=== PATIENT | male | born 1940 | race Two or more races ===

== ENCOUNTER 2024-03-17 17:55 | Inpatient (IN) | payer OTHER ==
[2024-03-17 19:31] LABS: BASO % 0.8 % (0-2.0); EOS % 0.2 % (0-4.5); HEMATOCRIT 25.8 % (35.4-49); HEMOGLOBIN 8.2 GM/dL (11.7-16.9); LYMPH % 13.3 % (8-40); MCH 26.9 pg (25.7-33.7); MCHC 31.6 g/dl (32.0-35.9); MEAN CELL VOLUME 85.1 fl (80-96); MEAN PLT VOLUME 8.1 fl (7.5-11.1); MONO % 5.7 % (3.8-10.2); PLATELET COUNT 354 10^3/uL (134-434); RBC 3.03 M/mm3 (4.00-5.60); WHITE BLOOD COUNT 15.3 K/mm3 (4.0-10.0)
[2024-03-17 19:46] LABS: INR 1.19 (0.83-1.09); PROTHROMBIN TIME (PATIENT) 13.6 SEC (9.7-13.0)
[2024-03-17 19:49] LABS: ACTIVATED PTT 35.9 SECONDS (25.2-36.5)
[2024-03-17 19:52] LABS: POTASSIUM 4.5 mmol/L (3.5-5.1)
[2024-03-17 19:54] LABS: ALBUMIN 2.1 g/dl (3.4-5.0); BLOOD UREA NITROGEN 25.7 mg/dL (7-18); CALCIUM 9.2 mg/dL (8.5-10.1); MAGNESIUM 2.2 mg/dL (1.8-2.4)
[2024-03-17 19:57] LABS: CREATININE 1.2 mg/dL (0.55-1.3)
[2024-03-17 19:59] LABS: BILIRUBIN,TOTAL 0.6 mg/dL (0.2-1); TOT PROT 7.2 g/dl (6.4-8.2)
[2024-03-17 20:01] LABS: LACTIC ACID 3.7 mmol/L (0.4-2.0)
[2024-03-17] MEDS ORDERED: ACETAMINOPHEN INJECTION 100 ML ONE (20:19)
[2024-03-17] MEDS: ACETAMINOPHEN 1000 MG/100 ML BAG IVPB ONE (20:33)
[2024-03-17] MEDS: LACTATED RINGERS SOLUTION 1000 ML INFUS.BAG IV ONE ×2 (20:34→22:45)
[2024-03-17] MEDS ORDERED: NAPH,MB-DB/K PH,MBDB POWDER PACKET ONE (20:44)
[2024-03-17 20:53] LABS: ANISOCYTOSIS 2+; MACROCYTOSIS 0; OVALOCYTE 1+; TARGET CELLS 1+
[2024-03-17] MEDS: NAPH,MB-DB/K PH,MBDB POWDER PACKET PO ONE (21:10)
[2024-03-17 21:53] LABS: EPI CELLS 1 /uL (0-25.1); HYALINE CASTS 0 /uL (0-3.1); URINE APPEARANCE CLEAR; URINE BACTERIA 1 /uL (0-1359); URINE BILIRUBIN NEGATIVE (NEGATIVE); URINE COLOR YELLOW; URINE GLUCOSE (UA) NEGATIVE (NEGATIVE); URINE KETONE NEGATIVE (NEGATIVE); URINE LEUK ESTERASE NEGATIVE (NEGATIVE); URINE NITRITE NEGATIVE (NEGATIVE); URINE PROTEIN 1+ (NEGATIVE); URINE RBC 14 /uL (0-23.9); URINE WBC 2 /uL (0-25.8)
[2024-03-17] MEDS ORDERED: PIPERACILLIN/TAZOB 4.5 GM 4.5 GM/100 ML BAG IVPB ONE (22:05)
[2024-03-17] MEDS: PIPERACILLIN/TAZOB 4.5 GM 4.5 GM in DEXTROSE 5%-WATER 100 ML IVPB ONE (22:35)
[2024-03-17 22:37] LABS: LACTIC ACID 2.8 mmol/L (0.4-2.0)
[2024-03-17] MEDS: VANCOMYCIN PREMIX 1.5 GM 1,500 MG/300 ML BAG IVPB ONE (23:01)
[2024-03-17] MEDS: VANCOMYCIN HCL 1,500 MG in DEXTROSE 5%-WATER - 500 ML IVPB ONE (23:10)
[2024-03-18] MEDS: PIPERACILLIN/TAZOB 2.25 GM 2.25 GM in DEXTROSE 5%-WATER - 50 ML IVPB SCH (05:38)
[2024-03-18] MEDS: PREGABALIN 25 MG CAPSULE PO SCH (09:48)
[2024-03-18] MEDS: ENOXAPARIN NA (PORCINE) 40 MG/0.4 ML DISP.SYRIN SQ SCH (09:48)
[2024-03-18] MEDS: amLODIPine BESYLATE 5 MG TABLET (FP) PO SCH (09:50)
[2024-03-18] MEDS ORDERED: VANCOMYCIN 1,000 MG in DEXTROSE 5%-WATER - 250 ML IVPB SCH (10:00)
[2024-03-18] MEDS ORDERED: INSULIN ASPART SLIDING SCALE (NOVOLOG) 1 VIAL SQ ONE (11:39)
[2024-03-18] MEDS: PIPERACILLIN/TAZOB 4.5 GM 4.5 GM in DEXTROSE 5%-WATER 100 ML IVPB SCH (12:53)
[2024-03-18] MEDS: IRON SUCROSE INJECTION 100 MG in SODIUM CHLORIDE 95 ML IVPB ONE (18:41)
[2024-03-18] MEDS: MIRTAZAPINE 15 MG TABLET (FP) PO SCH (21:40)
[2024-03-18] MEDS: NAPH,MB-DB/K PH,MBDB POWDER PACKET PO SCH (21:42)
[2024-03-19] MEDS ORDERED: PIPERACILLIN/TAZOB 2.25 GM 2.25 GM in DEXTROSE 5%-WATER - 50 ML IVPB SCH (03:00)
[2024-03-19] MEDS: MULTIVITAMINS (DAILY MVI) TABLET (FP) PO SCH (09:50)
[2024-03-19] MEDS: FERROUS SO4 325 MG TABLET (FP) PO SCH (09:50)
[2024-03-19 11:11] LABS: BASO % 0.1 % (0-2.0); EOS % 0.4 % (0-4.5); HEMATOCRIT 26.3 % (35.4-49); HEMOGLOBIN 8.3 GM/dL (11.7-16.9); LYMPH % 6.5 % (8-40); MCH 26.5 pg (25.7-33.7); MCHC 31.7 g/dl (32.0-35.9); MEAN CELL VOLUME 83.6 fl (80-96); MEAN PLT VOLUME 7.7 fl (7.5-11.1); MONO % 5.4 % (3.8-10.2); NEUT % 87.6 % (42.8-82.8); PLATELET COUNT 351 10^3/uL (134-434); RBC 3.15 M/mm3 (4.00-5.60); WHITE BLOOD COUNT 12.7 K/mm3 (4.0-10.0)
[2024-03-19 11:28] LABS: POTASSIUM 3.9 mmol/L (3.5-5.1)
[2024-03-19 11:30] LABS: CALCIUM 8.1 mg/dL (8.5-10.1)
[2024-03-19 11:31] LABS: ALBUMIN 1.8 g/dl (3.4-5.0); BLOOD UREA NITROGEN 17.1 mg/dL (7-18); MAGNESIUM 2.1 mg/dL (1.8-2.4)
[2024-03-19 11:36] LABS: BILIRUBIN,TOTAL 1.1 mg/dL (0.2-1); TOT PROT 6.4 g/dl (6.4-8.2)
[2024-03-21 09:48] LABS: BASO % 0.4 % (0-2.0); EOS % 1.4 % (0-4.5); HEMATOCRIT 28.5 % (35.4-49); HEMOGLOBIN 9.1 GM/dL (11.7-16.9); LYMPH % 17.4 % (8-40); MCH 26.9 pg (25.7-33.7); MCHC 32.1 g/dl (32.0-35.9); MEAN CELL VOLUME 83.8 fl (80-96); MEAN PLT VOLUME 7.8 fl (7.5-11.1); MONO % 4.8 % (3.8-10.2); PLATELET COUNT 445 10^3/uL (134-434); RDW 21.1 % (11.9-15.9)
[2024-03-21 10:17] LABS: BLOOD UREA NITROGEN 19.9 mg/dL (7-18); CALCIUM 8.4 mg/dL (8.5-10.1); MAGNESIUM 2.3 mg/dL (1.8-2.4)
[2024-03-21 10:20] LABS: CREATININE 1.1 mg/dL (0.55-1.3)
[2024-03-21 10:22] LABS: BILIRUBIN,TOTAL 0.9 mg/dL (0.2-1); TOT PROT 7.2 g/dl (6.4-8.2)
[2024-03-21 10:35] LABS: ANISOCYTOSIS 2+; MACROCYTOSIS 2+; OVALOCYTE 1+; TARGET CELLS 1+; TEAR DROP CELLS 1+
[2024-03-21] MEDS: PIPERACILLIN/TAZOB 4.5 GM 4.5 GM/100 ML BAG IVPB SCH (17:45)
[2024-03-21] MEDS: MIRTAZAPINE 15 MG TABLET (FP) PO SCH (21:20)
[2024-03-22 09:32] LABS: BASO % 0.2 % (0-2.0); EOS % 1.1 % (0-4.5); HEMATOCRIT 26.3 % (35.4-49); HEMOGLOBIN 8.3 GM/dL (11.7-16.9); LYMPH % 6.2 % (8-40); MCH 26.9 pg (25.7-33.7); MCHC 31.4 g/dl (32.0-35.9); MEAN CELL VOLUME 85.6 fl (80-96); MEAN PLT VOLUME 7.7 fl (7.5-11.1); MONO % 6.3 % (3.8-10.2); NEUT % 86.2 % (42.8-82.8); PLATELET COUNT 318 10^3/uL (134-434); RBC 3.08 M/mm3 (4.00-5.60); RDW 20.8 % (11.9-15.9); WHITE BLOOD COUNT 12.8 K/mm3 (4.0-10.0)
[2024-03-22 09:44] LABS: POTASSIUM 4.1 mmol/L (3.5-5.1)
[2024-03-22 09:50] LABS: CALCIUM 8.2 mg/dL (8.5-10.1)
[2024-03-22 09:51] LABS: ALBUMIN 1.8 g/dl (3.4-5.0); BLOOD UREA NITROGEN 17.9 mg/dL (7-18); MAGNESIUM 2.1 mg/dL (1.8-2.4)
[2024-03-22 09:53] LABS: BILIRUBIN,TOTAL 0.8 mg/dL (0.2-1)
[2024-03-22 09:54] LABS: TOT PROT 6.4 g/dl (6.4-8.2)
[2024-03-22 19:04] VITALS: RESP 18
[2024-03-23 10:05] LABS: BASO % 0.1 % (0-2.0); EOS % 1.4 % (0-4.5); HEMATOCRIT 29.7 % (35.4-49); HEMOGLOBIN 9.5 GM/dL (11.7-16.9); LYMPH % 13.8 % (8-40); MCH 27.3 pg (25.7-33.7); MCHC 31.8 g/dl (32.0-35.9); MEAN CELL VOLUME 85.8 fl (80-96); MEAN PLT VOLUME 7.8 fl (7.5-11.1); MONO % 4.9 % (3.8-10.2); NEUT % 79.8 % (42.8-82.8); PLATELET COUNT 472 10^3/uL (134-434); RBC 3.47 M/mm3 (4.00-5.60); RDW 20.9 % (11.9-15.9); WHITE BLOOD COUNT 16.2 K/mm3 (4.0-10.0)
[2024-03-23 10:30] LABS: POTASSIUM 4.1 mmol/L (3.5-5.1)
[2024-03-23 10:32] LABS: ALBUMIN 2.1 g/dl (3.4-5.0); BLOOD UREA NITROGEN 17.9 mg/dL (7-18); CALCIUM 8.6 mg/dL (8.5-10.1); MAGNESIUM 2.2 mg/dL (1.8-2.4)
[2024-03-23 10:35] LABS: CREATININE 1.2 mg/dL (0.55-1.3)
[2024-03-23 10:36] LABS: PLATELET ESTIMATE ADEQUATE
[2024-03-23 10:37] LABS: BILIRUBIN,TOTAL 0.9 mg/dL (0.2-1); TOT PROT 7.7 g/dl (6.4-8.2)
[2024-03-23 16:36] VITALS: BMI 20.5
[2024-03-24] MEDS: AMOX TR/POT CLAV 875MG/125MG TABLETS (FP) PO SCH (08:04)
[2024-03-24 08:11] VITALS: BP 127/62; PULSE 88; TEMP 99.9
== END 2024-03-24 09:08 | DRG 871 ==
LOC: JER 17:55 → JERBED 23:39 → J8W 03-18 04:33
PROVIDERS: ADMIT Internal Medicine; ATTEND Nurse Practitioner Family
DX: A41.89 Other specified sepsis (principal); E43 Unspecified severe protein-calorie malnutrition; G93.41 Metabolic encephalopathy; C18.9 Malignant neoplasm of colon, unspecified; C78.7 Secondary malignant neoplasm of liver and intrahepatic bile duct; C78.00 Secondary malignant neoplasm of unspecified lung; E87.20 Acidosis, unspecified; R64 Cachexia; R41.82 Altered mental status, unspecified; I12.9 Hypertensive chronic kidney disease with stage 1 through stage 4 chronic kidney disease, or unspecified chronic kidney disease; E11.22 Type 2 diabetes mellitus with diabetic chronic kidney disease; N18.9 Chronic kidney disease, unspecified; E83.39 Other disorders of phosphorus metabolism; M79.7 Fibromyalgia; K21.9 Gastro-esophageal reflux disease without esophagitis; Z68.20 Body mass index [BMI] 20.0-20.9, adult
CPT/HCPCS: 0241U-QW; 36415; 70450-TC; 71045-TC-FY; 71260-TC; 74177-TC; 80053; 81003; 82140; 82728; 82962; 83540; 83550; 83605; 83735; 84100; 84484; 85025; 85610; 85651; 85730; 86140; 86850; 86900; 86901; 87040; 87086; 93005; 93010; 97116-GP; 97161-GP; 99285-25; J0131; J1756; Q9967

== ENCOUNTER 2024-06-03 08:21 | Inpatient (IN) | payer OTHER ==
[2024-06-03] MEDS ORDERED: NOREPINEPHRINE 0.9 % NACL 8 MG/250 ML BAG IVPB ONE (08:36)
[2024-06-03] MEDS: NOREPINEPHRINE 0.9 % NACL 8 MG/250 ML BAG IVPB SCH (08:45)
[2024-06-03 09:05] VITALS: BMI 18.2
[2024-06-03] MEDS ORDERED: FENTANYL CITRATE/PF 50 MCG/ML VIAL ONE (09:08)
[2024-06-03 09:13] LABS: VENOUS BASE EXCESS -23.4 mmol/L (-2-2); VENOUS O2 SATURATION 82.5 % (70-80); VENOUS PCO2 29.3 mmHg (38-52)
[2024-06-03] MEDS: FENTANYL CITRATE/PF 50 MCG/ML VIAL IVPUSH ONE (09:13)
[2024-06-03] MEDS ORDERED: EPINEPHrine 1:10,000 (P-F SYR) 1 MG/10 ML DISP.SYRIN IVPUSH ONE (09:14)
[2024-06-03 09:15] LABS: VENOUS PH 6.974 (7.310-7.410)
[2024-06-03] MEDS ORDERED: HYDROCORTISONE SOD SUCCINATE 100 MG/2 ML VIAL ONE (09:16)
[2024-06-03] MEDS: HYDROCORTISONE SOD SUCCINATE 100 MG/2 ML VIAL IVPUSH ONE (09:19)
[2024-06-03 09:26] LABS: INR 1.58 (0.83-1.09); PROTHROMBIN TIME (PATIENT) 17.6 SEC (9.7-13.0)
[2024-06-03] MEDS ORDERED: MIDAZOLAM IN 0.9 % SOD.CHLORID 1 MG/1 ML PLAST..BAG ONE (09:27)
[2024-06-03 09:28] LABS: ACTIVATED PTT 38.4 SECONDS (25.2-36.5); HEMATOCRIT 25.9 % (35.4-49); MCH 33.6 pg (25.7-33.7); MCHC 30.8 g/dl (32.0-35.9); MEAN PLT VOLUME 8.5 fl (7.5-11.1); PLATELET COUNT 244 10^3/uL (134-434); RBC 2.38 M/mm3 (4.00-5.60); RDW 24.3 % (11.9-15.9); WHITE BLOOD COUNT 10.7 K/mm3 (4.0-10.0)
[2024-06-03 09:40] LABS: LACTIC ACID 12.3 mmol/L (0.4-2.0)
[2024-06-03] MEDS: MIDAZOLAM IN 0.9 % SOD.CHLORID 100 MG/100 ML PLAST..BAG IVPB SCH (09:43)
[2024-06-03 09:46] LABS: CHLORIDE 110 mmol/L (98-107); SODIUM 139 mmol/L (136-145)
[2024-06-03 09:47] LABS: POTASSIUM 6.6 mmol/L (3.5-5.1)
[2024-06-03 09:48] LABS: ALBUMIN 1.3 g/dl (3.4-5.0); ANION GAP 20 mmol/L (4-13); BLOOD UREA NITROGEN 99.6 mg/dL (7-18); CALCIUM 7.8 mg/dL (8.5-10.1); CO2 9 mmol/L (21-32)
[2024-06-03 09:51] LABS: SGOT/AST 277 U/L (15-37); SGPT/ALT 70 U/L (13-61)
[2024-06-03 09:52] LABS: CREATININE 5.9 mg/dL (0.55-1.3)
[2024-06-03 09:53] LABS: BILIRUBIN,TOTAL 6.3 mg/dL (0.2-1); TOT PROT 5.9 g/dl (6.4-8.2)
[2024-06-03 09:54] LABS: ALK PHOS 494 U/L (45-117); GLUCOSE,RANDOM 38 mg/dL (74-106)
[2024-06-03] MEDS ORDERED: FENTANYL NS IVPB 500 MCG/100 ML BAG IVPB ONE (10:00)
[2024-06-03] MEDS: FENTANYL NS IVPB 500 MCG/100 ML BAG IVPB SCH (10:06)
[2024-06-03] MEDS ORDERED: NOREPINEPHRINE BITARTRATE 4,000 MCG in DEXTROSE 5%-WATER - 496 ML IVPB SCH (10:30)
[2024-06-03] MEDS ORDERED: DEXTROSE 50%-WATER 25 GM/50 ML DISP.SYRIN ONE (10:41)
[2024-06-03 10:43] LABS: ANISOCYTOSIS 2+; MACROCYTOSIS 2+
[2024-06-03] MEDS: DEXTROSE 50%-WATER - 25 GM/50 ML VIAL IVPUSH ONE ×2 (10:50→11:58)
[2024-06-03 17:42] VITALS: BP 133/54; PULSE 70; RESP 16; TEMP 91.2
== END 2024-06-03 19:56 | disposition expired | DRG 374 ==
LOC: JER 08:21 → JERBED 10:59 → J4S 17:05
PROVIDERS: ADMIT Internal Medicine; ATTEND Internal Medicine
DX: C18.9 Malignant neoplasm of colon, unspecified (principal); G93.41 Metabolic encephalopathy; J96.01 Acute respiratory failure with hypoxia; C78.00 Secondary malignant neoplasm of unspecified lung; C78.7 Secondary malignant neoplasm of liver and intrahepatic bile duct; R17 Unspecified jaundice; J90 Pleural effusion, not elsewhere classified; M62.50 Muscle wasting and atrophy, not elsewhere classified, unspecified site; I12.9 Hypertensive chronic kidney disease with stage 1 through stage 4 chronic kidney disease, or unspecified chronic kidney disease; E11.22 Type 2 diabetes mellitus with diabetic chronic kidney disease; N18.9 Chronic kidney disease, unspecified; D50.9 Iron deficiency anemia, unspecified; Z51.5 Encounter for palliative care
CPT/HCPCS: 0241U-QW; 36415; 80053; 82803; 83605; 84484; 85025; 85610; 85730; 86850; 86900; 86901; 87040; 99291